=== PATIENT | male | born 1975 | race Caucasian/White ===

== ENCOUNTER → 2018-09-23 | Emergency (ER) | payer OTHER ==
[~2018-09-23] VITALS: Ht 172.7 cm; Wt 72.0 kg
[~2018-09-23] MED LIST: DOXY100C43 PO
[2018-09-23 12:27] VITALS: BP 130/81
== END | disposition home or self-care (01) ==
LOC: ER 12:15
DX: R21 Rash and other nonspecific skin eruption (principal)
CPT/HCPCS: 99283

== ENCOUNTER 2020-01-17 08:54 | Emergency (ER) | payer BC ==
[~2020-01-17] VITALS: Ht 172.7 cm; Wt 72.7 kg
[2020-01-17 09:05] VITALS: BP 129/87
[2020-01-17] MEDS ORDERED: SULF1TAB49 PO (09:39)
== END 2020-01-17 09:58 | disposition home or self-care (01) ==
LOC: ER 08:54 → EEVIPCON 08:54 → ER 09:58
DX: L02.414 Cutaneous abscess of left upper limb (principal); Z86.14 Personal history of Methicillin resistant Staphylococcus aureus infection; Z79.2 Long term (current) use of antibiotics
CPT/HCPCS: 99283

== ENCOUNTER 2020-12-22 09:28 | Emergency (ER) | payer BC, OTHER ==
[~2020-12-22] VITALS: Ht 172.7 cm; Wt 79.0 kg
[2020-12-22 09:30] VITALS: BP 150/95
[2020-12-22] MEDS ORDERED: triamcinolone acetonide 40mg/ml inj IM ONE (10:25)
[2020-12-22] MEDS ORDERED: KEN0.1O TP (10:51)
== END 2020-12-22 11:06 | disposition home or self-care (01) ==
LOC: ER 09:28
DX: L23.7 Allergic contact dermatitis due to plants, except food (principal); H10.13 Acute atopic conjunctivitis, bilateral; Z86.14 Personal history of Methicillin resistant Staphylococcus aureus infection; Z72.89 Other problems related to lifestyle; Z79.899 Other long term (current) drug therapy
CPT/HCPCS: 96372; 99283; J3301